=== PATIENT | female | born 1960 | race Caucasian/White ===

== ENCOUNTER 2017-12-25 08:50 | Emergency (ER) | payer BC ==
[2017-12-25 09:03] VITALS: BP 145/92
--- NOTE | 2017-12-25 09:39 | RAD ---
Indication: RIGHT ankle pain and swelling for one week without preceding injury. Comparison: No relevant prior exams available on the [facility] PACS for comparison. Technique: AP, mortise, and lateral views RIGHT ankle. REPORT AND IMPRESSION: #. Normal articular alignment and preserved joint spaces. Negative for fracture or osteochondral lesion. Mild soft tissue swelling over the lateral malleolus.
--- NOTE | 2017-12-25 10:11 | UC ---
Lower Extremity/Ankle HPI - HPI Summary HPI Summary: Patient is a 57-year-old female with a one-week history of right ankle pain and swelling. She does not recall any injury. Pain and swelling increase with weightbearing. She has not taken any medicines for this. Denies any other joint pains. She has had no fever. The joint has not been red or warm. - History of Current Complaint Chief Complaint: UCLowerExtremity Stated Complaint: RIGHT ANKLE PAIN Time Seen by Provider: 12/25/17 09:10 Hx Obtained From: Patient Onset/Duration: Gradual Onset, Lasting Days Severity Initially: Mild Severity Currently: Mild Pain Intensity: 4 Pain Scale Used: 0-10 Numeric Aggravating Factor(s): Standing, Ambulation Alleviating Factor(s): Rest, Elevation Able to Bear Weight: Yes - Allergies/Home Medications Allergies/Adverse Reactions: Allergies Allergy/AdvReac Type Severity Reaction Status Date / Time amoxicillin [From Augmentin] Allergy Hives Verified 12/25/17 09:02 clavulanic acid Allergy Hives Verified 12/25/17 09:02 [From Augmentin] PMH/Surg Hx/FS Hx/Imm Hx Previously Healthy: Yes - Surgical History Surgical History: Yes Surgery Procedure, Year, and Place: Tubal Ligation, 1982, [facility]. Tonsillectomy, ~1966 - Social History Alcohol Use: Occasionally Substance Use Type: None Smoking Status (MU): Never Smoked Tobacco - Immunization History Most Recent Influenza Vaccination: Not the Season Review of Systems Constitutional: Negative Skin: Negative Eyes: Negative ENT: Negative Respiratory: Negative Cardiovascular: Negative Gastrointestinal: Negative Genitourinary: Negative Motor: Negative Neurovascular: Negative Musculoskeletal: Arthralgia Neurological: Negative Psychological: Negative Is Patient Immunocompromised?: No All Other Systems Reviewed And Are Negative: Yes Physical Exam Triage Information Reviewed: Yes Appearance: Well-Appearing, No Pain Distress, Well-Nourished Vital Signs: Initial Vital Signs Temp 98.2 F 12/25/17 08:58 Pulse 77 12/25/17 08:58 Resp 16 12/25/17 08:58 BP 145/92 12/25/17 08:58 Pulse Ox 100 12/25/17 08:58 Eyes: Positive: Conjunctiva Clear ENT: Positive: Hearing grossly normal. Negative: Nasal drainage, TMs normal, Trismus, Muffled voice Neck: Positive: Supple, Nontender Respiratory: Positive: Lungs clear, Normal breath sounds, No respiratory distress, No accessory muscle use Cardiovascular: Positive: RRR, No Murmur Musculoskeletal: Positive: Edema @ - LM right, Other: - tender laterally Psychological Exam: Normal Skin Exam: Normal Diagnostics - Radiology No standard instances Xray Interpretation: No Acute Changes - [facility] Radiology Interpretation Completed By: Radiologist Lower Extremity Course/Dx - Differential Dx/Diagnosis Provider Diagnoses: right ankle pain of uncertain cause. ? overuse injury Discharge - Sign-Out/Discharge Documenting (check all that apply): Patient Departure - Discharge Plan Condition: Stable Disposition: HOME Patient Education Materials: Swollen Joint (ED) Referrals: [facility] [Outside] - As Soon As Possible (call and ask for a [place] APPT) No Primary Care Phys,NOPCP [Primary Care Provider] - Additional Instructions: ice twice daily ibuprofen (200mg) 2-3 4x day as needed - Billing Disposition and Condition Condition: STABLE Disposition: Home
== END 2017-12-25 09:54 | disposition home or self-care (01) ==
LOC: UCCORT 08:50
DX: M25.571 Pain in right ankle and joints of right foot (principal); Z88.0 Allergy status to penicillin; Z88.8 Allergy status to other drugs, medicaments and biological substances
CPT/HCPCS: 99211; G0463

== ENCOUNTER 2018-03-04 13:16 | Emergency (ER) | payer BC ==
[2018-03-04 15:21] VITALS: BP 148/68
--- NOTE | 2018-03-04 16:11 | UC ---
Eye Complaint HPI - HPI Summary HPI Summary: Pt c/o worsening right eye pain, swelling and redness X 3 days. - History of Current Complaint Chief Complaint: UCEye Stated Complaint: RT EYE CONCERN Time Seen by Provider: 03/04/18 15:25 Hx Obtained From: Patient ?: No Onset/Duration: Gradual Onset, Lasting Days Timing: Constant Severity Initially: Mild Severity Currently: Mild Pain Intensity: 2 Pain Scale Used: 0-10 Numeric Character: Dull Alleviating Factor(s): Nothing Associated Signs And Symptoms: Positive: Negative - Risk Factors Penetrating Injury Risk Factor: Negative Globe Rupture Risk Factors: Negative Acute Glaucoma Risk Factors: Negative Optic Artery Occlusion Risk Factors: Negative - Allergies/Home Medications Allergies/Adverse Reactions: Allergies Allergy/AdvReac Type Severity Reaction Status Date / Time amoxicillin [From Augmentin] Allergy Hives Verified 03/04/18 15:16 clavulanic acid Allergy Hives Verified 03/04/18 15:16 [From Augmentin] PMH/Surg Hx/FS Hx/Imm Hx Previously Healthy: Yes - Surgical History Surgical History: Yes Surgery Procedure, Year, and Place: Tubal Ligation, 1982, [facility]. Tonsillectomy, ~1966 - Family History Known Family History: Positive: Cardiac Disease - Social History Occupation: Employed Full-time Lives: With Family Alcohol Use: Weekly Alcohol Amount: 1-2 glasses of wine/day Substance Use Type: None Smoking Status (MU): Never Smoked Tobacco Have You Smoked in the Last Year: No - Immunization History Most Recent Influenza Vaccination: Not the 2013/2014 Season Most Recent Tetanus Shot: UNSURE Vaccination Up to Date: No Review of Systems Constitutional: Negative Skin: Negative Eyes: Eye Redness, Other - right lower eye lid, swelling, with pustular center. ENT: Negative Respiratory: Negative Cardiovascular: Negative Gastrointestinal: Negative Genitourinary: Negative Motor: Negative Neurovascular: Negative Musculoskeletal: Negative Neurological: Negative Psychological: Negative Is Patient Immunocompromised?: No All Other Systems Reviewed And Are Negative: Yes Physical Exam Triage Information Reviewed: Yes Appearance: Well-Appearing Vital Signs: Initial Vital Signs Temp 98.4 F 03/04/18 15:16 Pulse 87 03/04/18 15:16 Resp 16 03/04/18 15:16 BP 148/68 03/04/18 15:16 Pulse Ox 99 03/04/18 15:16 Vital Signs Reviewed: Yes Eyes: Positive: Other: - stye, right lower eyelid outer eye lid ENT Exam: Normal Dental Exam: Normal Neck exam: Normal Respiratory Exam: Normal Cardiovascular Exam: Normal Musculoskeletal Exam: Normal Neurological Exam: Normal Psychological Exam: Normal Skin Exam: Normal Eye Complaint Course/Dx - Differential Dx/Diagnosis Differential Diagnosis/HQI/PQRI: Orbital Cellulitis, Other - shingles Provider Diagnoses: right lower eye lid stye Discharge - Sign-Out/Discharge Documenting (check all that apply): Patient Departure All imaging exams completed and their final reports reviewed: No Studies - Discharge Plan Condition: Stable Disposition: HOME Prescriptions: Cetirizine* [ZyrTEC 10 MG TAB*] 10 mg PO DAILY #10 tab Polymyx/Trimethoprim OPTH* [Polytrim OPHTH*] 2 drop RIGHT EYE Q8H 7 Days #1 btl Patient Education Materials: Gelacio (ED) Referrals: [facility] [Outside] - As Soon As Possible No Primary Care Phys,NOPCP [Primary Care Provider] - - Billing Disposition and Condition Condition: STABLE Disposition: Home
== END 2018-03-04 15:52 | disposition home or self-care (01) ==
LOC: UCCORT 13:16
DX: H00.012 Hordeolum externum right lower eyelid (principal); Z88.1 Allergy status to other antibiotic agents; Z88.8 Allergy status to other drugs, medicaments and biological substances
CPT/HCPCS: 99211; G0463